=== PATIENT | female | born 1985 | race African-American/Black ===

== ENCOUNTER 2016-10-11 19:57 | Emergency (ER) | payer OTHER, MEDICARE ==
[~2016-10-11] VITALS: Ht 167.6 cm; Wt 130.2 kg
[~2016-10-11 19:57] MED LIST: ABILIFY 2MG2 MG PO; ARIPIPRAZOLE5 MG PO; AUGMENTIN 875 M1 TAB PO; AZATHIOPRINE50 M1 PO; AZATHIOPRINE50 MG PO; BUPROPION HYDR150 M1 PO; CATAPRES 0.1MG0.1 MG PO; CILOXAN5 ML OPH; CITALOPRAM HYDR10 MG PO; CITALOPRAM20 MG PO; CLONIDINE HYDR0.1 M1 PO; DICLOFENAC SOD2.5 M1 OPH; EPIPEN 2-PAK1 MG/ML IM; FLEXERIL10 MG PO; IBUPROFEN800 MG PO; MOTRIN 600 MG600 MG PO; MOTRIN800 MG PO; NEURONTIN300 MG PO; NEURONTIN600 M1 PO; TRAMADOL50 MG PO; TRAZODONE50 MG PO; TYLENOL #31 TAB PO
--- NOTE | 2016-10-11 21:20 | ED GI/GU/ABDOMINAL COMPLAINT ---
History of Present Illness General Chief Complaint: Abdominal Pain/Flank Pain Stated Complaint: BIBA FOR ABD PAIN Source: patient, family, old records Exam Limitations: no limitations Vital Signs & Intake/Output Vital Signs & Intake/Output Vital Signs Date Time Temp Pulse Resp B/P Pulse O2 O2 Flow FiO2 Ox Delivery Rate 10/11 2035 96.8 84 20 154/94 97 Room Air ED Intake and Output 10/12 0000 10/11 1200 Intake Total 0 Output Total Balance 0 Intake, Oral 0 Patient 287 lb Weight Allergies Coded Allergies: pineapple (ANAPHYLAXIS 10/11/16) rituximab (From RITUXAN) (ANAPHYLAXIS 10/11/16) venom-honey bee (BEE VENOM (HONEY BEE)) (ANAPHYLAXIS 10/11/16) Reconcile Medications Clonidine HCl 0.2 MG TABLET 1 TAB PO BID MENTAL HEALTH (Reported) Epinephrine (Epipen 2-Chicho Auto-Injector) 1 MG/ML KIT 0.3 mg IM PRN ALLERGIC REACTION (Reported) Gabapentin 300 MG CAPSULE 1 CAP PO QPM SLEEP (Reported) Lurasidone HCl (Latuda) 60 MG TABLET 1 TAB PO QPM MENTAL HEALTH (Reported) Mycophenolate Mofetil 500 MG TABLET 3 TAB PO BID TTP (Reported) Prednisone 20 MG TABLET 0.5 TAB PO QAM TTP (Reported) Triage Note: TRIAGE: PT TO ER VIA AMBULANCE FROM HOME C/C LUQ ABD PAIN X 1 WK, CONSTANT SINCE ONSET, UNRELIEVED WITH TYLENOL. +N/-V/-D. LNBM ?3 WEEKS AGO. NORMALLY MOVES BOWELS Q 3 DAYS. -URINARY S/S. Triage Nurses Notes Reviewed? yes ? N Is pt currently ? No HPI: Patient has a history of TTP in she began having left upper quadrant abdominal pain approximately 3 months ago. Patient was seen by her printing equipment mechanic apprentice and was put on prednisone 60 mg. Patient states that the abdominal pain went away after starting the prednisone. Patient has been on a slow taper sent. Patient decreased to 10 mg prednisone 1 week ago and patient states that the pain came back. Pain is a crampy pain in her left upper quadrant. There is no radiation. There no aggravating or mitigating factors. Patient denies any nausea or vomiting. Patient rates the pain as 7 out of 10. Patient again followed up with her printing equipment mechanic apprentice who put her on Nexium which has not been helping the pain at all. Patient then called her printing equipment mechanic apprentice who told her to take: All which the patient did do an patient states that that also did not help the pain. The patient now presents to the emergency department for evaluation. Past History Travel History Traveled to [place] past 21 day No Medical History Any Pertinent Medical History? 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 No Review of Systems Review of Systems Constitutional: Reports: no symptoms. EENTM: Reports: no symptoms. Respiratory: Reports: no symptoms. Cardiovascular: Reports: no symptoms. GI: Reports: see HPI, abdominal pain. Genitourinary: Reports: no symptoms. Musculoskeletal: Reports: no symptoms. Skin: Reports: no symptoms. Neurological/Psychological: Reports: no symptoms. Hematologic/Endocrine: Reports: see HPI, bruising. Immunologic/Allergic: Reports: no symptoms. All Other Systems: Reviewed and Negative Physical Exam Physical Exam General Appearance: well developed/nourished, alert, awake, mild distress Head: atraumatic, normal appearance Eyes: Bilateral: PERRL, EOMI, other (ANICTERIC). Ears, Nose, Throat, Mouth: hearing grossly normal, moist mucous membrane Neck: normal inspection, supple, full range of motion Respiratory: normal breath sounds, chest non-tender, no respiratory distress, lungs clear Cardiovascular: regular rate/rhythm, normal peripheral pulses Gastrointestinal: normal bowel sounds, soft, non-tender, no organomegaly Back: normal inspection, normal range of motion, NO cva TENDERNESS Extremities: normal range of motion Neurologic/Psych: no motor/sensory deficits, awake, alert, oriented x 3, normal gait, normal mood/affect Skin: intact, normal color, warm/dry Core Measures ACS in differential dx? No Severe Sepsis Present: No Septic Shock Present: No Progress Differential Diagnosis: biliary colic, cholecystitis, diverticulitis, ectopic , gastritis, hepatitis, ischemic bowel, inflamm bowel dis, pancreatitis , peptic ulcer, PUD/GERD, perforated viscous Plan of Care: Orders Procedure Date/time Status LIPASE 10/11 2118 Complete HUMAN BETA HCG SCREEN 10/11 2118 Complete COMPREHENSIVE METABOLIC PANEL 10/11 2118 Complete CBC WITHOUT DIFFERENTIAL 10/11 2118 Complete AMYLASE 10/11 2118 Complete Laboratory Tests 10/11/16 2215: Anion Gap 9, Estimated GFR > 60, BUN/Creatinine Ratio 10.0, Glucose 86, Calcium 8.7, Total Bilirubin 1.0, AST 18, ALT 33, Alkaline Phosphatase 94, Total Protein 7.2, Albumin 3.9, Globulin 3.3, Albumin/Globulin Ratio 1.2, Amylase < 30 L, Lipase 65, Total Beta HCG NEGATIVE, CBC w Diff NO MAN DIFF REQ, RBC 5.09, MCV 77.7 L, MCH 25.0 L, RDW 15.3 H, MPV 8.3, Gran % 71.6, Lymphocytes % 20.9, Monocytes % 5.3, Eosinophils % 1.9, Basophils % 0.3, Absolute Granulocytes 8.4 H, Absolute Lymphocytes 2.5, Absolute Monocytes 0.6, Absolute Eosinophils 0.2, Absolute Basophils 0, PUBS MCHC 32.2 L Initial ED EKG: none Comments: Patient states that her platelet count usually runs about 278,000 so today's level is low for her. Case was discussed with her printing equipment mechanic apprentice. Patient appears to be relapsing from her TTP. He recommends transfer to [facility] for admission for plasmaphoresis. Departure Departure Disposition: OTHER [facility] ([facility]) Condition: Guarded Clinical Impression Primary Impression: T.T.P. syndrome Referrals: LEYDI CHAMBERLAIN APRN (PCP/Family) Departure Forms: Customer Survey General Discharge Information Critical Care Note Critical Care Note Critical Care Time: mins: (30 min)
[2016-10-11 22:26] LABS: ABSOLUTE BASOPHIL COUNT 0 /CUMM (0.0-0.2); ABSOLUTE EOSINOPHIL COUNT 0.2 /CUMM (0.0-0.7); ABSOLUTE GRANULOCYTE CT 8.4 /CUMM (1.4-6.5); ABSOLUTE LYMPH COUNT 2.5 /CUMM (1.2-3.4); ABSOLUTE MONOCYTE COUNT 0.6 /CUMM (0.10-0.60); BASOPHIL % 0.3 % (0.0-2.0); EOSINOPHIL % 1.9 % (0-5); GRANULOCYTE % 71.6 % (42.2-75.2); HEMATOCRIT 39.5 % (37-47); MEAN CORPUSCULAR HGB CONC 32.2 G/DL (33.0-37.0); MEAN CORPUSCULAR VOLUME 77.7 FL (81.0-99.0); MEAN PLATELET VOLUME 8.3 FL (7.4-10.4); RBC DISTRIBUTION WIDTH 15.3 % (11.5-14.5); RED BLOOD CELL CT 5.09 /CUMM (4.20-5.40); WHITE BLOOD CELL COUNT 11.8 /CUMM (4.8-10.8)
[2016-10-11] MEDS ORDERED: LATUDA60 M1 PO (22:46)
[2016-10-11] MEDS ORDERED: MYCOPHENOLATE500 M1 PO (22:46)
[2016-10-11] MEDS ORDERED: CLONIDINE HCL0.2 M1 PO (22:46)
[2016-10-11] MEDS ORDERED: GABAPENTIN300 M2 PO (22:47)
[2016-10-11] MEDS ORDERED: PREDNISONE20 M1 PO (22:47)
[2016-10-11 22:54] LABS: PLATELET COUNT 78 /CUMM (130-400)
[2016-10-12 00:46] VITALS: BP 150/90
[2017-02-09] MEDS ORDERED: CLONIDINE HCL0.1 MG PO (19:11)
[2017-02-09] MEDS ORDERED: LATUDA80 M1 PO (19:11)
[2017-02-09] MEDS ORDERED: TRAZODONE HCL100 M1 PO (19:12)
[2017-02-09] MEDS ORDERED: LISINOPRIL10 M1 PO (19:12)
[2017-02-09] MEDS ORDERED: AMLODIPINE BESY10 M1 PO (19:12)
== END 2016-10-12 01:02 | disposition short-term general hospital (02) ==
LOC: ERH 19:57
PROVIDERS: Emergency Medicine
DX: M31.1 Thrombotic microangiopathy (principal)

== ENCOUNTER 2017-04-02 13:59 | Emergency (ER) | payer OTHER, MEDICARE ==
[~2017-04-02] VITALS: Ht 167.6 cm; Wt 133.4 kg
[~2017-04-02 13:59] MED LIST changes: +AMLODIPINE BESY10 M1 PO; +CLONIDINE HCL0.1 MG PO; +CLONIDINE HCL0.2 M1 PO; +GABAPENTIN300 M2 PO; +LATUDA60 M1 PO; +LATUDA80 M1 PO; +LISINOPRIL10 M1 PO; +MYCOPHENOLATE500 M1 PO; +PREDNISONE20 M1 PO; +TRAZODONE HCL100 M1 PO
[2017-04-02 14:04] VITALS: BP 136/82
--- NOTE | 2017-04-02 14:11 | ED ANIMAL BITE/WOUND CHECK ---
History of Present Illness General Chief Complaint: Suture Removal/Wound Recheck Stated Complaint: DRESSING CHANGE Source: patient Exam Limitations: no limitations Vital Signs & Intake/Output Vital Signs & Intake/Output Vital Signs Date Time Temp Pulse Resp B/P B/P Pulse O2 O2 Flow FiO2 Mean Ox Delivery Rate 04/02 1404 97.3 93 20 136/82 98 Room Air Allergies Coded Allergies: pineapple (ANAPHYLAXIS 10/11/16) rituximab (From RITUXAN) (ANAPHYLAXIS 10/11/16) venom-honey bee (BEE VENOM (HONEY BEE)) (ANAPHYLAXIS 10/11/16) Reconcile Medications Amlodipine Besylate 10 MG TABLET 1 TAB PO DAILY BP (Reported) Clonidine HCl 0.1 MG TABLET 1 TAB PO BID MENTAL HEALTH (Reported) Lisinopril 10 MG TABLET 1 TAB PO DAILY BP (Reported) Lurasidone HCl (Latuda) 80 MG TABLET 1 TAB PO QPM MENTAL HEALTH (Reported) Mycophenolate Mofetil 500 MG TABLET 3 TAB PO BID TTP (Reported) Trazodone HCl 100 MG TABLET 1 TAB PO QPM SLEEP (Reported) Triage Note: REQUESTING DRESSING CHANGE TO R CHEST WALL. HAS AN IMPLANTED DOUBLE LUMEN CATHETER IN CHEST WALL. [facility] AND THEY WOULD NOT CHANGE IT. Triage Nurses Notes Reviewed? yes Onset: Abrupt Duration: constant Timing: recent history Severity: mild Severity Numbers: 1 : No Patient currently breastfeeds: No HPI: Patient is a 31-year-old female with past medical history of TTP AND HTN in which 3 weeks ago she had a indwelling CENTRAL LINE catheter placed by [facility] DURING HER ADMISSION AND NOW for prophylactic placement FOR needed plasmapheresis in which she was discharged 3 days ago from [facility] in which she states that she presented to [facility] emergency room TODAY and they refused to change the dressings of her central line indwelling catheter. Patient states that the CURRENT bandage is not adhering well to the skin however is still intact Patient does state that she did present to [place] emergency room 2 days ago and a change the dressings Patient otherwise is without complaints. She states on Tuesday she is following up with [facility]. (VICKI LYLES) Past History Travel History Traveled to [place] past 21 day No Medical History Any Pertinent Medical History? 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 No (VICKI LYLES) Review of Systems Review of Systems Constitutional: Reports: see HPI. Denies: chills, fever. EENTM: Reports: no symptoms. Respiratory: Reports: no symptoms. Cardiovascular: Reports: no symptoms. GI: Reports: no symptoms. Genitourinary: Reports: no symptoms. Musculoskeletal: Reports: no symptoms. Skin: Reports: see HPI. Neurological/Psychological: Reports: no symptoms. Hematologic/Endocrine: Reports: no symptoms. Immunologic/Allergic: Reports: no symptoms. All Other Systems: Reviewed and Negative (VICKI LYLES) Physical Exam Physical Exam General Appearance: no apparent distress, alert Head: atraumatic Eyes: Bilateral: normal appearance. Ears, Nose, Throat: normal pharynx Respiratory: no respiratory distress Gastrointestinal: non-tender Extremities: normal range of motion Skin: normal color, warm/dry Diagram Body: 1) Indwelling double-lumen intact with no surrounding erythema no warmth or tenderness no signs of infection (VICKI LYLES) Progress Differential Diagnosis: abscess, cellulitis, CENTRAL LINE INFECTION Plan of Care: The sterile dressings were reapplied by nursing staff in which there is no concerns of localized infection at this time patient denies any symptoms and was shortly advised to follow-up with discharge instructions for plan and she will comply (VICKI LYLES) Departure Departure Disposition: HOME OR SELF CARE Condition: Stable Clinical Impression Primary Impression: Encounter for central line care Secondary Impressions: S/P PICC central line placement Referrals: LEYDI CHAMBERLAIN APRN (PCP/Family) Additional Instructions: As discussed follow-up with [facility] for further evaluation treatment YOU HAVE AN APPOINTMENT ON TUESDAY. IF Symptoms worsen or if YOU develop new concerning symptom return to emergency room immediately Departure Forms: Customer Survey General Discharge Information (VICKI LYLES) PA/FRESCO ARTIST Co-Sign Statement Statement: ED Attending supervision documentation- [] I saw and evaluated the patient. I have also reviewed all the pertinent lab results and diagnostic results. I agree with the findings and the plan of care as documented in the PA's/FRESCO ARTIST's documentation. [X] I have reviewed the ED Record and agree with the PA's/FRESCO ARTIST's documentation. [] Additions or exceptions (if any) to the PAs/FRESCO ARTIST's note and plan are summarized below: [] (RALPH JARRELL,NURYS)
== END 2017-04-02 14:52 ==
LOC: ERH 13:59
DX: Z48.01 Encounter for change or removal of surgical wound dressing (principal)
CPT/HCPCS: 99281

== ENCOUNTER 2017-09-18 10:12 | Emergency (ER) | payer OTHER, MEDICARE ==
[~2017-09-18] VITALS: Ht 167.6 cm; Wt 122.5 kg
[~2017-09-18 10:12] MED LIST changes: +AMOXICILLIN500 M2 PO; +LAMOTRIGINE25 M3 PO; +LATUDA120 M1 PO; -LATUDA80 M1 PO; +METFORMIN HCL500 M3 PO; +NASONEX17 GM NASB; +POTASSIUM CHLO20 ME2 PO; +TESSALON PERLE100 M1 PO; -TRAZODONE HCL100 M1 PO; +TRAZODONE HCL150 M1 PO; +ZOLPIDEM TARTRAT5 M1 PO
--- NOTE | 2017-09-18 11:00 | ED UPPER/LOWER EXTREMITY COMPL ---
History of Present Illness General Chief Complaint: Lower Extremity Problems Stated Complaint: CHRONIC KNEE PAIN Source: patient Exam Limitations: no limitations Vital Signs & Intake/Output Vital Signs & Intake/Output Vital Signs Date Time Temp Pulse Resp B/P B/P Pulse O2 O2 Flow FiO2 Mean Ox Delivery Rate 09/18 1015 98.4 100 18 143/84 98 Room Air Allergies Coded Allergies: pineapple (ANAPHYLAXIS 10/11/16) rituximab (From RITUXAN) (ANAPHYLAXIS 10/11/16) venom-honey bee (BEE VENOM (HONEY BEE)) (ANAPHYLAXIS 10/11/16) Reconcile Medications Amlodipine Besylate 10 MG TABLET 1 TAB PO DAILY BP (Reported) Amoxicillin 500 MG CAPSULE 1 CAP PO TID PRN otitis media Benzonatate (Tessalon Perle) 100 MG CAPSULE 1 CAP PO TID PRN cough Clonidine HCl 0.1 MG TABLET 1 TAB PO BID MENTAL HEALTH (Reported) Cyclobenzaprine HCl 10 MG TABLET 1 TAB PO QHS PRN SPASM Lamotrigine 25 MG TABLET 2 TAB PO QPM MENTAL HEALTH (Reported) Lisinopril 10 MG TABLET 1 TAB PO DAILY BP (Reported) Lurasidone HCl (Latuda) 120 MG TABLET 1 TAB PO QPM MENTAL HEALTH (Reported) Metformin HCl 500 MG TABLET 1 TAB PO BID DIABETES (Reported) Mometasone Furoate (Nasonex) 50 MCG SPRAY.PUMP 2 SPRAY NASB DAILY PRN congestion Mycophenolate Mofetil 500 MG TABLET 3 TAB PO BID TTP (Reported) Naproxen 500 MG TABLET 1 TAB PO BID PRN PAIN TAKE WITH FOOD Potassium Chloride 20 MEQ TAB.ER.PRT 1 TAB PO BID SUPPLEMNENT (Reported) Trazodone HCl 150 MG TABLET 1 TAB PO QPM SLEEP (Reported) Zolpidem Tartrate 5 MG TABLET 1 TAB PO QPM SLEEP (Reported) Triage Note: 31 YO FEMALE TO TRIAGE C/O L KNEE PAIN X1 DAYS. DENIES INJURY Triage Nurses Notes Reviewed? yes : No Patient currently breastfeeds: No HPI: This is a 31-year-old female with history of TTP who presents to ER with chief complaint of left knee pain for the last 2 days. Patient denies any injury. She denies any swelling or fever. Pain is worse with standing and ambulating. No blood thinner medications. She states the pain radiates around to the back of her knee. No history of previous injury to that knee. She is not on any daily medications. Denies any chance of , has an IUD. Past History Travel History Traveled to [place] past 21 day No Medical History Any Pertinent Medical History? 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 No Review of Systems Review of Systems Constitutional: Denies: chills, fever. EENTM: Reports: no symptoms. Respiratory: Denies: short of breath. Cardiovascular: Reports: chest pain. Gastrointestinal/Abdominal: Denies: abdominal pain. Genitourinary: Reports: no symptoms. Musculoskeletal: Reports: joint pain. Denies: joint swelling, muscle pain, muscle stiffness, neck pain. Skin: Reports: no symptoms. Neurological/Psychological: Reports: no symptoms. Hematologic/Endocrine: Denies: bruising, bleeding, polyuria, polydipsia. Immunological: Reports: no symptoms. All Other Systems: Reviewed and Negative Physical Exam Physical Exam General Appearance: well developed/nourished, mild distress, obese Head: atraumatic Eyes: Bilateral: PERRL, EOMI. Ears, Nose, Throat: normal pharynx, normal ENT inspection, hearing grossly normal Neck: normal inspection, supple Cardiovascular/Respiratory: regular rate/rhythm Back: normal inspection Leg Left: normal range of motion, normal inspection Leg Right: normal range of motion, normal inspection Hip Left: normal range of motion, normal inspection Hip Right: normal range of motion, normal inspection Knee Left: FULL RANGE OF MOTION, PAIN TO LATERAL ASPECT, NO DEFORMITY, MILD SWELLING, STABLE LIGAMENTOUS EXAMINATION Knee Right: normal range of motion, normal inspection Foot Left: normal inspection, normal range of motion Foot Right: normal inspection, normal range of motion Neurologic/Tendon: normal sensation, normal motor functions, normal tendon functions Skin: intact, normal color, warm/dry Lymphatic: no anterior cervical helen Progress Differential Diagnosis: DVT, sprain, tendon injury, LIGAMENTOUS INJURY, TENDINITIS Plan of Care: Orders Procedure Date/time Status Durable Medical Equipment 09/18 1135 Active Diagnostic Imaging: Viewed by Me: Radiology Read. Discussed w/RAD: Radiology Read. Radiology Impression: PATIENT: ROSIBEL STOVALL PRESENT AGE: 31 PATIENT ACCOUNT NO: [id number] : 84 LOCATION: [facility] [place] ORDERING PHYSICIAN: Luz Guevara MD SERVICE DATE: 09/18/17 EXAM TYPE: RAD - XRY-KNEE COMPLETE LEFT EXAMINATION: XR KNEE, LEFT CLINICAL INFORMATION: Left knee pain and swelling COMPARISON: None TECHNIQUE: Four views of the left knee. FINDINGS: Alignment is normal. The joint spaces are maintained. No arthritic deformity, fracture or subluxation. Moderate sized knee joint effusion is present. IMPRESSION: 1. No acute osseous abnormality at the left knee. 2. Moderate joint effusion. DICTATED BY: Miah Aragon MD DATE/TIME DICTATED:1129 VOLUNTEER SERVICES MANAGER:GIA DATE/TIME TRANSCRIBED:09/18/171129 CONFIDENTIAL, DO NOT COPY WITHOUT APPROPRIATE AUTHORIZATION. <Electronically signed in Other Vendor System> SIGNED BY: Miah Aragon MD 09/18/171134 Departure Departure Time of Disposition: 1137 Disposition: HOME OR SELF CARE Condition: Stable Clinical Impression Primary Impression: Knee pain Secondary Impressions: Joint effusion of knee Referrals: Laura Moy APRN (PCP/Family) Additional Instructions: USE THE KNEE IMMOBILIZER FOR PAIN RELIEF NEEDED ICE, REST AND ELEVATE THE KNEE/LEG MUCH POSSIBLE TAKE THE NAPROXEN AND FLEXERIL DIRECTED FOLLOW UP WITH YOUR DOCTOR IN THE OFFICE IF SYMPTOMS PERSIST, YOU MAY NEED TO SEE AN MICROSTRATEGY ARCHITECT DEVELOPER, ONE IS LISTED ON YOUR DISCHARGE PAPERS RETURN TO THE ER FOR ANY CHANGING OR WORSENING SYMPTOMS Departure Forms: Customer Survey General Discharge Information Prescriptions: Current Visit Scripts Naproxen 1 TAB PO BID PRN PAIN #30 TAB TAKE WITH FOOD Cyclobenzaprine HCl 1 TAB PO QHS PRN SPASM #20 TAB Procedures Splinting Location: LEFT KNEE IMMOBILIZER
--- NOTE | 2017-09-18 11:35 | RADIOLOGY REPORT ---
EXAMINATION: XR KNEE, LEFT CLINICAL INFORMATION: Left knee pain and swelling COMPARISON: None TECHNIQUE: Four views of the left knee. FINDINGS: Alignment is normal. The joint spaces are maintained. No arthritic deformity, fracture or subluxation. Moderate sized knee joint effusion is present. IMPRESSION: 1. No acute osseous abnormality at the left knee. 2. Moderate joint effusion.
[2017-09-18] MEDS ORDERED: NAPROXEN500 M2 PO (11:37)
[2017-09-18] MEDS ORDERED: CYCLOBENZAPRINE10 M1 PO (11:37)
[2017-09-18 11:55] VITALS: BP 139/74
== END 2017-09-18 11:55 ==
LOC: ERH 10:12
DX: M25.462 Effusion, left knee (principal)
CPT/HCPCS: 73562-LT; 96372; J1885

== ENCOUNTER 2017-10-09 17:40 | Emergency (ER) | payer OTHER, MEDICARE ==
[~2017-10-09] VITALS: Ht 167.6 cm; Wt 130.2 kg
[~2017-10-09 17:40] MED LIST changes: +CYCLOBENZAPRINE10 M1 PO; +NAPROXEN500 M2 PO
--- NOTE | 2017-10-09 18:24 | ED GI/GU/ABDOMINAL COMPLAINT ---
History of Present Illness General Chief Complaint: General Adult Stated Complaint: LT KNEE PAIN, VAGINAL PAIN Source: patient Exam Limitations: no limitations Vital Signs & Intake/Output Vital Signs & Intake/Output Vital Signs Date Time Temp Pulse Resp B/P B/P Pulse O2 O2 Flow FiO2 Mean Ox Delivery Rate 10/09 1924 98.3 89 17 144/83 98 Room Air 10/09 1745 97.8 98 16 151/95 100 Room Air ED Intake and Output 10/10 0000 10/09 1200 Intake Total Output Total 200 Balance -200 Output, Urine 200 Patient 287 lb Weight Weight Reported by Patient Measurement Method Allergies Coded Allergies: pineapple (ANAPHYLAXIS 10/11/16) rituximab (From RITUXAN) (ANAPHYLAXIS 10/11/16) venom-honey bee (BEE VENOM (HONEY BEE)) (ANAPHYLAXIS 10/11/16) Reconcile Medications Amlodipine Besylate 10 MG TABLET 1 TAB PO DAILY BP (Reported) Amoxicillin 500 MG CAPSULE 1 CAP PO TID PRN otitis media Benzonatate (Tessalon Perle) 100 MG CAPSULE 1 CAP PO TID PRN cough Clonidine HCl 0.1 MG TABLET 1 TAB PO BID MENTAL HEALTH (Reported) Cyclobenzaprine HCl 10 MG TABLET 1 TAB PO QHS PRN SPASM Lamotrigine 25 MG TABLET 2 TAB PO QPM MENTAL HEALTH (Reported) Lisinopril 10 MG TABLET 1 TAB PO DAILY BP (Reported) Lurasidone HCl (Latuda) 120 MG TABLET 1 TAB PO QPM MENTAL HEALTH (Reported) Meloxicam (Mobic) 15 MG TABLET 1 TAB PO DAILY PRN PAIN Metformin HCl 500 MG TABLET 1 TAB PO BID DIABETES (Reported) Mometasone Furoate (Nasonex) 50 MCG SPRAY.PUMP 2 SPRAY NASB DAILY PRN congestion Mycophenolate Mofetil 500 MG TABLET 3 TAB PO BID TTP (Reported) Naproxen 500 MG TABLET 1 TAB PO BID PRN PAIN TAKE WITH FOOD Potassium Chloride 20 MEQ TAB.ER.PRT 1 TAB PO BID SUPPLEMNENT (Reported) Trazodone HCl 150 MG TABLET 1 TAB PO QPM SLEEP (Reported) Zolpidem Tartrate 5 MG TABLET 1 TAB PO QPM SLEEP (Reported) Triage Note: PT STATES SHE IS HAVING LEFT KNEE PAIN AND STATES SHE IS HAVING BAG VAGINAL CRAMPING AND HAS AN IUD IN. PT DENIES HAVING HER MENSES AT THIS TIME AND IS NOT SURE WHEN HER NEXT ONE IS DUE STATES SHE HAS IRREGULAR PERIODS Triage Nurses Notes Reviewed? yes ? N Is pt currently ? No Onset: Gradual Duration: day(s): Timing: recent history Quality/Severity: moderate Location: vaginal HPI: 31-year-old female presents emergency department complaining of left knee pain and vaginal pain. Patient states that she began experiencing left knee pain 2 weeks ago, she was seen and evaluated in the emergency department told she had fluid in the left knee. Patient placed in knee immobilizer and started on naproxen and Flexeril. She states that these medications helped however she still has persistent pain. Patient has an appointment scheduled with her primary care doctor for further evaluation this week. Denies recent injury to the left knee. Patient also complaining of vaginal pain and irritation for over one week. Patient states she saw her COLD MOLDING PRESS OPERATOR last week, had swabs taken however did not hear back about the results. Patient has a follow-up appointment with her COLD MOLDING PRESS OPERATOR scheduled for 2 days from now. Patient states she has had an IUD for the past 6 months without complication. She denies dysuria, hematuria, changes in vaginal discharge, nausea, vomiting, fevers, chills. (Yocasta Caputo) Past History Travel History Traveled to [place] past 21 day No Medical History Any Pertinent Medical History? 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 No (Yocasta Caputo) Review of Systems Review of Systems Constitutional: Reports: no symptoms. EENTM: Reports: no symptoms. Respiratory: Reports: no symptoms. Cardiovascular: Reports: no symptoms. GI: Reports: see HPI. Genitourinary: Reports: see HPI. Musculoskeletal: Reports: see HPI. Skin: Reports: no symptoms. Neurological/Psychological: Reports: no symptoms. Hematologic/Endocrine: Reports: no symptoms. Immunologic/Allergic: Reports: no symptoms. All Other Systems: Reviewed and Negative (Yocasta Caputo) Physical Exam Physical Exam General Appearance: well developed/nourished, no apparent distress, alert, awake Head: atraumatic, normal appearance Eyes: Bilateral: normal appearance. Ears, Nose, Throat, Mouth: hearing grossly normal Neck: normal inspection, supple, full range of motion Respiratory: normal breath sounds, no respiratory distress, lungs clear Cardiovascular: regular rate/rhythm Gastrointestinal: normal bowel sounds, soft, no organomegaly, MILD suprapubic tenderness Pelvic: deferred Back: normal inspection, normal range of motion, no CVA tenderness Extremities: normal range of motion, posterior left knee tenderness without swelling or deformity Neurologic/Psych: awake, alert, oriented x 3 Skin: intact, normal color, warm/dry Core Measures ACS in differential dx? No Sepsis Present: No Sepsis Focused Exam Completed? No (Yocasta Caputo) Progress Differential Diagnosis: intrauterine , PID/cervicitis, threatened AB, UTI/pyelo, muscle strain, sprain, tendon/ligament injury, joint effusion Plan of Care: Orders Procedure Date/time Status URINE 10/09 1823 Complete URINALYSIS 10/09 1823 Complete Laboratory Tests 10/09/171831: Urine Color YEL, Urine Clarity CLEAR, Urine pH 6.0, Ur Specific [place] 1.010, Urine Protein NEG, Urine Ketones NEG, Urine Nitrite NEG, Urine Bilirubin NEG, Urine Urobilinogen 0.2, Ur Leukocyte Esterase NEG, Ur Microscopic EXAM NOT REQUIRED, Urine Hemoglobin NEG, Urine Glucose NEG, Urine Test NEGATIVE Patient placed in Cheko wrap and prescribed meloxicam to take for her persistent left knee pain. She has had no recent injury since previous imaging, repeat imaging deferred. Patient had recent speculum exam and swabs performed by her COLD MOLDING PRESS OPERATOR. At that time she reports IUD strings were visualized and were WNL. Patient offered further speculum exam today however declines as she as a f/u with her COLD MOLDING PRESS OPERATOR in two days. We do not have ultrasound available in the emergency department at this time. It was recommended the patient to ultrasound to her COLD MOLDING PRESS OPERATOR to further assess for her IUD. Otherwise patient can return on a weekday for outpatient ultrasound. Patient was offered CT scan to further assess however given risk of radiation and her complaints of mild pain decision made to observe until follow- up with COLD MOLDING PRESS OPERATOR in 2 days. Patient in no acute distress, nontoxic appearing, vital signs are stable. The patient agrees with this plan of care. Initial ED EKG: none (Yocasta Caputo) Departure Departure Disposition: HOME OR SELF CARE Condition: Stable Clinical Impression Primary Impression: Knee pain Qualifiers: Chronicity: acute Laterality: left Qualified Code: M25.562 - Pain in left knee Secondary Impressions: Vaginal pain Referrals: Laura Moy APRN (PCP/Family) Additional Instructions: Take meloxicam as prescribed as needed for pain. Follow-up with your COLD MOLDING PRESS OPERATOR on Tuesday as scheduled. Request ultrasound 2-year-old COLD MOLDING PRESS OPERATOR on Tuesday if possible to further assess her IUD. Follow-up with your primary care doctor regarding her knee pain as discussed. Wear Cheko wrap for your knee immobilizer as needed for stability and compression. Apply ice intermittently. Return with any worsening symptoms or other concerns. Please note that there might be incidental findings in your evaluation that are unrelated to the current emergency department visit. Please notify your primary care doctor about this emergency department visit in order to obtain and review all of the testing performed so that these incidental findings can be monitored as needed. If you had an x-ray performed, please understand that some fractures may not be seen on the initial set of x-rays. If your symptoms persist you might need a repeat set of x-rays to check for such a fracture. If you had a laceration evaluated, please understand that foreign bodies such as glass or wood may not be visible to the naked eye or on plain x-rays. If the wound becomes red, swollen, increasingly more painful or if there is any drainage from the wound, please have it reevaluated by a physician for the possibility of a retained foreign body. If you're unable to follow up as outlined in the discharge instructions please return to the emergency department. Thank you for choosing the [facility] Emergency Department for your care. It was a pleasure to serve you today. Departure Forms: Customer Survey General Discharge Information Prescriptions: Current Visit Scripts Meloxicam (Mobic) 1 TAB PO DAILY PRN PAIN #15 TAB (Yocasta Caputo) PA/COLOR DEVELOPER Co-Sign Statement Statement: ED Attending supervision documentation- [] I saw and evaluated the patient. I have also reviewed all the pertinent lab results and diagnostic results. I agree with the findings and the plan of care as documented in the PA's/COLOR DEVELOPER's documentation. [x] I have reviewed the ED Record and agree with the PA's/COLOR DEVELOPER's documentation. [] Additions or exceptions (if any) to the PAs/COLOR DEVELOPER's note and plan are summarized below: [] (Juaquin JARRELL,uHber Blair)
[2017-10-09] MEDS ORDERED: MOBIC15 M1 PO (19:05)
[2017-10-09 19:24] VITALS: BP 144/83
== END 2017-10-09 19:25 ==
LOC: ERH 17:40
DX: R10.2 Pelvic and perineal pain (principal); M25.562 Pain in left knee
CPT/HCPCS: 81003; 81025

== ENCOUNTER 2018-06-02 20:01 | Emergency (ER) | payer OTHER, MEDICARE ==
[~2018-06-02] VITALS: Ht 167.6 cm; Wt 135.2 kg
[~2018-06-02 20:01] MED LIST changes: +IBUPROFEN800 M1 PO; +MOBIC15 M1 PO
--- NOTE | 2018-06-02 20:05 | ED UPPER/LOWER EXTREMITY COMPL ---
History of Present Illness General Chief Complaint: Lower Extremity Problems Stated Complaint: BIBA FOR EVAL FOR RIGHT KNEE PAIN Source: patient, EMS Exam Limitations: no limitations Vital Signs & Intake/Output Vital Signs & Intake/Output Vital Signs Date Time Temp Pulse Resp B/P B/P Pulse O2 O2 Flow FiO2 Mean Ox Delivery Rate 06/02 2025 99.0 80 20 106/69 98 Room Air Allergies Coded Allergies: pineapple (ANAPHYLAXIS 10/11/16) rituximab (From RITUXAN) (ANAPHYLAXIS 10/11/16) venom-honey bee (BEE VENOM (HONEY BEE)) (ANAPHYLAXIS 10/11/16) Reconcile Medications Amlodipine Besylate 10 MG TABLET 1 TAB PO DAILY BP (Reported) Amoxicillin 500 MG CAPSULE 1 CAP PO TID PRN otitis media Benzonatate (Tessalon Perle) 100 MG CAPSULE 1 CAP PO TID PRN cough Clonidine HCl 0.1 MG TABLET 1 TAB PO BID MENTAL HEALTH (Reported) Cyclobenzaprine HCl 10 MG TABLET 1 TAB PO QHS PRN SPASM Ibuprofen 800 MG TABLET 1 TAB PO TID pain Lamotrigine 25 MG TABLET 2 TAB PO QPM MENTAL HEALTH (Reported) Lisinopril 10 MG TABLET 1 TAB PO DAILY BP (Reported) Lurasidone HCl (Latuda) 120 MG TABLET 1 TAB PO QPM MENTAL HEALTH (Reported) Meloxicam (Mobic) 15 MG TABLET 1 TAB PO DAILY PRN PAIN Metformin HCl 500 MG TABLET 1 TAB PO BID DIABETES (Reported) Mometasone Furoate (Nasonex) 50 MCG SPRAY.PUMP 2 SPRAY NASB DAILY PRN congestion Mycophenolate Mofetil 500 MG TABLET 3 TAB PO BID TTP (Reported) Naproxen 500 MG TABLET 1 TAB PO BID PRN PAIN TAKE WITH FOOD Potassium Chloride 20 MEQ TAB.ER.PRT 1 TAB PO BID SUPPLEMNENT (Reported) Trazodone HCl 150 MG TABLET 1 TAB PO QPM SLEEP (Reported) Zolpidem Tartrate 5 MG TABLET 1 TAB PO QPM SLEEP (Reported) Triage Nurses Notes Reviewed? yes Onset: Gradual Duration: day(s): Timing: recent history Severity: moderate Pain/Injury Location: Right: Knee. Method of Injury: unknown Modifying Factors: Improves With: rest. Worsens With: movement. Associated Symptoms: swelling HPI: 32 yo woman presents with right knee pain x 2 days. She shares that she has felt swelling and decreased range of movement, but no recent recalled trauma, fall, contusion. She notes difficulty with ambualation. She is otherwise well. Past History Travel History Traveled to [place] past 21 day No Medical History Any Pertinent Medical History? 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 No Review of Systems Review of Systems Constitutional: Reports: no symptoms. EENTM: Reports: no symptoms. Respiratory: Reports: no symptoms. Cardiovascular: Reports: no symptoms. Gastrointestinal/Abdominal: Reports: no symptoms. Genitourinary: Reports: no symptoms. Musculoskeletal: Reports: no symptoms. Skin: Reports: no symptoms. Neurological/Psychological: Reports: no symptoms. Hematologic/Endocrine: Reports: no symptoms. Immunological: Reports: no symptoms. All Other Systems: Reviewed and Negative Physical Exam Physical Exam General Appearance: well developed/nourished, mild distress Head: atraumatic, normal appearance Eyes: Bilateral: normal appearance. Ears, Nose, Throat: normal pharynx, normal ENT inspection Neck: normal inspection, supple, full range of motion Cardiovascular/Respiratory: no respiratory distress Knee Right: minimal effusion, mild pain elicited with anterior drawer test and medial collateral ligament stress. no focal bony tenderness. ROM is normal but compromised by discomfort. Progress Differential Diagnosis: contusion, sprain, tendon injury Plan of Care: Orders Procedure Date/time Status URINE 06/02 2006 Complete Laboratory Tests 06/02/18 2044: Urine Test NEGATIVE Diagnostic Imaging: Viewed by Me: Radiology Read. Discussed w/RAD: Radiology Read. Radiology Impression: PATIENT: ROSIBEL STOVALL PRESENT AGE: 32 PATIENT ACCOUNT NO: [id number] : 84 LOCATION: [facility] ORDERING PHYSICIAN: Huber Reza MD SERVICE DATE: 06/02/18-2005 EXAM TYPE: RAD - XRY-KNEE COMPLETE RIGHT EXAMINATION: XR KNEE, RIGHT CLINICAL INFORMATION: Right knee pain x2 days. COMPARISON: None TECHNIQUE: Four views of the right knee. FINDINGS: There is no visible acute fracture, dislocation or subluxation. There is a small anterior superior patellar enthesophyte. The soft tissues are normal. IMPRESSION: No visible acute fracture or dislocation. Small anterior superior patellar enthesophyte. DICTATED BY: Irvin Garrison MD DATE/TIME DICTATED:06/02/182125 MANUAL ARTS THERAPY TEACHER:GIA DATE/TIME TRANSCRIBED:2125 CONFIDENTIAL, DO NOT COPY WITHOUT APPROPRIATE AUTHORIZATION. < Electronically signed in Other Vendor System> SIGNED BY: Irvin Garrison MD [id number] Departure Departure Disposition: HOME OR SELF CARE Condition: Stable Clinical Impression Primary Impression: Right knee sprain Referrals: Laura Moy APRN (PCP/Family) Departure Forms: Customer Survey General Discharge Information Comments melissa wrap to right knee... discussed supportive measures.
--- NOTE | 2018-06-02 21:32 | RADIOLOGY REPORT ---
EXAMINATION: XR KNEE, RIGHT CLINICAL INFORMATION: Right knee pain x2 days. COMPARISON: None TECHNIQUE: Four views of the right knee. FINDINGS: There is no visible acute fracture, dislocation or subluxation. There is a small anterior superior patellar enthesophyte. The soft tissues are normal. IMPRESSION: No visible acute fracture or dislocation. Small anterior superior patellar enthesophyte.
[2018-06-02 22:10] VITALS: BP 125/68
== END 2018-06-02 22:18 ==
LOC: ERH 20:01
DX: S83.91XA Sprain of unspecified site of right knee, initial encounter (principal); X58.XXXA Exposure to other specified factors, initial encounter; Y92.9 Unspecified place or not applicable; Y93.9 Activity, unspecified; F41.9 Anxiety disorder, unspecified; F31.9 Bipolar disorder, unspecified; F32.9 Major depressive disorder, single episode, unspecified
CPT/HCPCS: 73562-RT; 81025